=== PATIENT | female | born 1970 ===

== ENCOUNTER 2020-04-16 13:07 | Emergency (ER) | payer SELFPAY ==
[2020-04-16 14:03] LABS: Basophils # (Auto) 0.1 K/mm3 (0.0-0.1); Basophils % (Auto) 0.4 % (0.0-1.8); Eosinophils # (Auto) 0.1 K/mm3 (0.0-0.4); Eosinophils % (Auto) 0.4 % (0.0-4.3); Hematocrit 47.5 % (30.3-42.9); Hemoglobin 16.1 gm/dl (10.1-14.3); Lymphocytes # (Auto) 2.9 K/mm3 (1.2-5.4); Lymphocytes % (Auto) 23.1 % (13.4-35.0); Mean Corpuscular HGB Conc 34 % (30-34); Mean Corpuscular Volume 88 fl (79-97); Monocytes # (Auto) 0.7 K/mm3 (0.0-0.8); Platelet Count 440 K/mm3 (140-440); Red Blood Count 5.41 M/mm3 (3.65-5.03); Red Cell Distribution Width 13.2 % (13.2-15.2)
[2020-04-16] MEDS ORDERED: ONDANSETRON 4 MG/2 ML INJ IV ONE (14:08)
[2020-04-16] MEDS ORDERED: SODIUM CHLORIDE 0.9% 1000 ML 1,000 ML IV ONE (14:08)
--- NOTE | 2020-04-16 14:16 | Emergency Department Report ---
ED Abdominal Pain HPI - General Chief Complaint: Abdominal Pain Stated Complaint: N/V/ABD PAIN Time Seen by Provider: 04/16/20 13:55 Source: patient Mode of arrival: Ambulatory Limitations: No Limitations - History of Present Illness Initial Comments: This is a 50-year-old female complaining of mid lower abdominal pain x 2 weeks associated with nausea and vomiting. She resides with her grandchildren who had URI symptoms and were treated and tested for COVID and was negative. Patient was started on amoxicillin by her PCP and states that is when her nausea and vomiting worsened she only took a total of 3 tablets of amoxicillin. She denies fever cough chest pain and shortness of breath denies any urinary symptoms states her last period was 2 months ago. She denies any recent travels and has no known contact of anyone of being around anyone who was culture positive MD Complaint: abdominal pain -: Sudden, days(s) (3) Location: suprapubic Radiation: none Migration to: no migration Quality: aching, sharp Improves With: nothing, bowel movement Associated Symptoms: nausea, vomiting. denies: diarrhea, fever, chills, constipation, dysuria, hematemesis, melena, hematuria, anorexia - Related Data LMP (females 10-50): 2 months Previous Rx's Medication Instructions Recorded Last Taken Type Clarithromycin 500 mg PO BID 14 Days #28 tablet 04/16/20 Unknown Rx Pantoprazole [Protonix] 40 mg PO QDAY #14 tablet 04/16/20 Unknown Rx metroNIDAZOLE [Flagyl TAB] 500 mg PO TID 14 Days #42 tablet 04/16/20 Unknown Rx Allergies Allergy/AdvReac Type Severity Reaction Status Date / Time No Known Allergies Allergy Unverified 04/16/20 13:11 ED Review of Systems ROS: Stated complaint: N/V/ABD PAIN Other details as noted in HPI Comment: All other systems reviewed and negative Constitutional: denies: chills, fever Eyes: denies: eye pain Respiratory: denies: cough, shortness of breath, SOB with exertion, SOB at rest Cardiovascular: denies: chest pain, palpitations, dyspnea on exertion Gastrointestinal: abdominal pain, nausea, vomiting. denies: diarrhea, constipation Musculoskeletal: denies: back pain Neurological: denies: headache, numbness, paresthesias, abnormal gait, vertigo Psychiatric: denies: anxiety, depression Hematological/Lymphatic: denies: as per HPI, easy bleeding, easy bruising, swollen glands ED Past Medical Hx - Past Medical History Previous Medical History?: No - Surgical History Past Surgical History?: No - Medications Home Medications: Home Medications Medication Instructions Recorded Confirmed Last Taken Type Clarithromycin 500 mg PO BID 14 Days #28 tablet 04/16/20 Unknown Rx Pantoprazole [Protonix] 40 mg PO QDAY #14 tablet 04/16/20 Unknown Rx metroNIDAZOLE [Flagyl TAB] 500 mg PO TID 14 Days #42 tablet 04/16/20 Unknown Rx ED Physical Exam - General Limitations: No Limitations General appearance: alert, in no apparent distress - Head Head exam: Present: atraumatic - Eye Eye exam: Present: normal appearance. Absent: scleral icterus - ENT ENT exam: Present: normal exam, mucous membranes moist - Neck Neck exam: Present: normal inspection. Absent: lymphadenopathy - Respiratory Respiratory exam: Present: normal lung sounds bilaterally. Absent: respiratory distress - Cardiovascular Cardiovascular Exam: Present: regular rate, normal heart sounds - GI/Abdominal GI/Abdominal exam: Present: soft, tenderness (suprapubic region ), normal bowel sounds. Absent: distended, organomegaly, mass, bruit, pulsatile mass - Rectal Rectal exam: Present: deferred - External exam: Present: normal external exam - Extremities Exam Extremities exam: Present: normal inspection - Back Exam Back exam: Present: normal inspection - Neurological Exam Neurological exam: Present: alert, oriented X3 - Psychiatric Psychiatric exam: Present: normal affect - Skin Skin exam: Present: warm, dry, intact ED Course Vital Signs 04/16/20 13:13 Temperature 98.2 F Pulse Rate 88 Respiratory 18 Rate Blood Pressure 118/78 [Right] O2 Sat by Pulse 98 Oximetry - Reevaluation(s) Reevaluation #1: 04/16/20 16:04 Abdominal pain has decreased. No vomiting while in the emergency room. Patient received 500 cc of normal saline. Plan to do CAT scan with and without contrast to rule out kidney stones and or acute appendicitis or any acute abdominal findings Reevaluation #2: 04/16/20 18:12 Patient doing well in no distress she has had no vomiting since in the emergency room 04/16/20 18:24 At patient's request I explained work-up and findings to her sister Mechelle via telephone ED Medical Decision Making - Lab Data Result diagrams: 04/16/20 13:22 10/17/20 13:22 - Radiology Data Radiology results: report reviewed Precontrast images do not demonstrate any definite urinary tract stones. No significant atherosclerotic changes present. Following the administration of intravenous contrast, no free fluid is seen in the abdomen. The liver, spleen, kidneys, pancreas, adrenal glands and great vessels are normal. No enlarged mesenteric or retroperitoneal lymph nodes are seen. There is thickening of the gastric antrum and proximal duodenum. In the pelvis, no free fluid is seen. There is a complex appearing 3 cm right adnexal lesion. No enlarged lymph nodes are identified. The bladder and the appendix are normal. No significant skeletal abnormality is seen. IMPRESSION: 1. Thickening of the gastric antrum and proximal duodenum which could represent gastroduodenitis 2. Complex 3 cm right adnexal lesion which could represent a dermoid - Medical Decision Making 50-year-old female with 2 weeks of abdominal pain nausea and vomiting. Labs slight increase in her WBC of 12.5 she had normal BUN and creatinine. Urinalysis was normal CT of her abdomen reveals gastro duodenitis and a right adnexal cyst most likely a dermoid. Patient all findings discussed with patient the plan is to treat her with triple therapy of metronidazole clarithromycin and Protonix For 14 days. Patient is also referred to [facility] regarding the ri ght adnexal cyst. Per patient request I also explained her work-up and findings to her sister Tia Critical care attestation.: If time is entered above; I have spent that time in minutes in the direct care of this critically ill patient, excluding procedure time. ED Disposition Clinical Impression: Gastroduodenitis, Adnexal cyst Disposition: TO HOME OR SELFCARE Is pt being admited?: No Does the pt Need Aspirin: No Condition: Stable Instructions: Abdominal Pain (ED) Additional Instructions: Take all medication as prescribed please follow-up with your primary care doctor in 3 to 5 days or return to the emergency room for any worsening symptoms increasing pain fever worsening vomiting CAT Scan Findings. 1. Thickening of the gastric antrum and proximal duodenum which could represent gastroduodenitis 2. Complex 3 cm right adnexal lesion which could represent a dermoid Please follow-up with an [facility] doctor of your choice regarding the 3 cm adnexal lesion or you can follow-up with Dr. Lindsey Tolliver call the number below to schedule an appointment [phone] Prescriptions: Clarithromycin 500 mg PO BID 14 Days #28 tablet metroNIDAZOLE [Flagyl TAB] 500 mg PO TID 14 Days #42 tablet Pantoprazole [Protonix] 40 mg PO QDAY #14 tablet Referrals: PRIMARY CARE, [Primary Care Provider] - 3-5 Days MONIQUE RIBERA MD [Staff Physician] - 3-5 Days Time of Disposition: 18:11
[2020-04-16 14:34] LABS: Alanine Aminotransferase 13 units/L (7-56); Blood Urea Nitrogen 13 mg/dL (7-17); Calcium 10.6 mg/dL (8.4-10.2); Hemolysis Index 20
[2020-04-16 14:37] LABS: BUN/Creatinine Ratio 26
[2020-04-16 15:08] LABS: Amorphous Crystals,Urine Few; Bacteria,Urine 1+ /HPF (Negative); Bilirubin,Urine NEG (Negative); Blood,Urine NEG (Negative); Color,Urine Yellow (Yellow); Mucus,Urine 1+ /HPF; Protein,Urine <15 mg/dL mg/dL (Negative); Urobilinogen,Urine < 2.0 mg/dL (<2.0)
[2020-04-16 15:16] LABS: HCG Qualitative,Urine Negative (Negative)
--- NOTE | 2020-04-16 17:13 | Cat Scan Report ---
CT abdomen pelvis wo/w con INDICATION / CLINICAL INFORMATION: abdominal pain. TECHNIQUE: All CT scans at this location are performed using CT dose reduction for ALARA by means of automated e xposure control. COMPARISON: None available. FINDINGS: Precontrast images do not demonstrate any definite urinary tract stones. No significant atherosclerot ic changes present. Following the administration of intravenous contrast, no free fluid is seen in the abdomen. The liver , spleen, kidneys, pancreas, adrenal glands and great vessels are normal. No enlarged mesenteric or r etroperitoneal lymph nodes are seen. There is thickening of the gastric antrum and proximal duodenum. In the pelvis, no free fluid is seen. There is a complex appearing 3 cm right adnexal lesion. No enla rged lymph nodes are identified. The bladder and the appendix are normal. No significant skeletal abn ormality is seen. IMPRESSION: 1. Thickening of the gastric antrum and proximal duodenum which could represent gastroduodenitis 2. Complex 3 cm right adnexal lesion which could represent a dermoid Signer Name: Jackson Benton MD FACR Signed: 04/16/2020 5:08 PM Workstation Name: [id number]
[2020-04-16 18:30] VITALS: BP 108/87
== END 2020-04-16 18:30 | disposition home or self-care (01) ==
LOC: ED 13:07
DX: K29.90 Gastroduodenitis, unspecified, without bleeding (principal); N94.9 Unspecified condition associated with female genital organs and menstrual cycle; Z79.899 Other long term (current) drug therapy
CPT/HCPCS: 36415; 74178; 80053; 81001; 81025; 83690; 85025; 96361; 96374; 99284; J2405; J7030; Q9967